=== PATIENT | male | born 1960 | race Caucasian/White ===

== ENCOUNTER 2017-02-14 10:15 | Emergency (ER) | payer MEDICARE, MEDICAID ==
[~2017-02-14] VITALS: Ht 172.7 cm; Wt 80.0 kg
[2017-02-14] MEDS ORDERED: LACT10SO6 PO (10:30)
[2017-02-14] MEDS ORDERED: DOCU-150 PO (10:30)
[2017-02-14] MEDS ORDERED: LACO100T2 PO (10:30)
[2017-02-14] MEDS ORDERED: HALO5TAB PO (10:30)
[2017-02-14] MEDS ORDERED: CLON1TAB4 PO (10:30)
[2017-02-14] MEDS ORDERED: FOLI-43 PO (10:30)
[2017-02-14] MEDS ORDERED: PANT40TA4 PO (10:30)
[2017-02-14] MEDS ORDERED: LEVE500T19 PO (10:30)
[2017-02-14] MEDS ORDERED: CYAN10009 PO (10:30)
[2017-02-14] MEDS ORDERED: DIVA500T51 PO (10:30)
[2017-02-14] MEDS ORDERED: POLY119P18 PO (10:30)
[2017-02-14] MEDS ORDERED: CHOL100046 PO (10:30)
[2017-02-14] MEDS ORDERED: BENZ0.5T3 PO (10:30)
[2017-02-14] MEDS ORDERED: ALEN70TA46 PO (10:30)
[2017-02-14] MEDS ORDERED: ECON15CR11 TOP (10:30)
[2017-02-14] MEDS ORDERED: BACITRACIN ZINC OINT UDPKT TOP ONE (10:45)
[2017-02-14] MEDS ORDERED: TETANUS, DIPHTHERIA, PERTUSSIS VAC/PF 0.5ML (>7YR OLD) IM ONE (10:45)
[2017-02-14] MEDS ORDERED: LIDOCAINE HCL 1%/EPI 1:200,000 30 ML VIAL MC ONE (10:45)
[2017-02-14] MEDS ORDERED: KETOROLAC 60MG/2ML VIAL IM ONE (10:45)
[2017-02-14 15:17] LABS: BASOPHILS % 0.3 % (0.0-2.0); EOSINOPHILS % 0.7 % (0.0-5.0); HEMATOCRIT. 35.5 % (42.0-52.0); HEMOGLOBIN. 12.5 g/dL (14.0-18.0); LYMPHOCYTES % 38.9 % (20.0-50.0); MEAN CORPUSCULAR HEMOGLOBIN 32.8 pg (28.0-32.0); MEAN CORPUSCULAR VOLUME 93.1 fL (80.0-94.0); MEAN PLATELET VOLUME 7.2 fl (7.4-10.4); MONOCYTES % 8.6 % (2.0-8.0); NEUTROPHILS % 51.5 % (40.0-76.0); PLATELET 152 x1000/uL (130-400); RED BLOOD CELL COUNT 3.81 mill/uL (4.7-6.1); RED CELL DISTRIBUTION WIDTH 14.8 % (11.6-14.6)
[2017-02-14 15:20] LABS: CHLORIDE 105 mEq/L (98-107)
[2017-02-14 15:23] LABS: CARBON DIOXIDE 32 mEq/L (21-32)
[2017-02-14 17:14] VITALS: BP 135/62
== END 2017-02-14 17:16 | disposition home or self-care (01) ==
LOC: ER 10:58
DX: S01.01XA Laceration without foreign body of scalp, initial encounter (principal); R56.9 Unspecified convulsions; F20.9 Schizophrenia, unspecified; W01.198A Fall on same level from slipping, tripping and stumbling with subsequent striking against other object, initial encounter; Y93.89 Activity, other specified; Y92.89 Other specified places as the place of occurrence of the external cause; Y99.8 Other external cause status
CPT/HCPCS: 12002; 36415; 70450; 72125; 80053; 80165; 85025; 90471; 90715; 96372; 99285; J1885